=== PATIENT | male | born 1965 | race Hispanic/Latino ===

== ENCOUNTER 2025-05-08 05:43 | Day surgery (SDC) | payer OTHER ==
[2025-05-06 10:03] LABS: IMMATURE GRANULOCYTE ABSOLUTE 0.02 K/uL (0-1); NUCLEATED RED BLOOD CELLS 0.0 % (0.0-0.19); PLATELET COUNT (AUTO) 180 K/uL (130-400); RED BLOOD CELL COUNT(AUTO) 5.29 MIL/uL (4.50-6.20); RED CELL DISTRIBUTION WIDTH 12.9 % (11.0-15.5); WHITE BLOOD COUNT (AUTO) 6.0 K/uL (4.8-10.8)
[2025-05-06 10:17] LABS: CREATININE 0.8 mg/dL (0.5-1.3); GLOMERULAR FILTR. RATE CALC 101.0 mL/min (>90); GLUCOSE,RANDOM 311.0 mg/dL (70-105); SODIUM SERUM 136.0 mmol/L (136-145); UREA NITROGEN, BLOOD 17.0 mg/dL (7-18)
[2025-05-06 10:18] LABS: ERYTHROCYTE SEDIMENTATION RATE 25 MM/HR (0-20)
[2025-05-06 10:36] VITALS: BP 161/86; PULSE 86; RESP 18; TEMP 98.4
[2025-05-06 10:37] LABS: INR 0.97 (0.85-1.15)
[~2025-05-08] VITALS: Ht 190.5 cm; Wt 132.3 kg
[2025-05-08] VITALS (17 sets, daily range): BP systolic 96–131; BP diastolic 50–80; PULSE 64–95; RESP 13–20; TEMP 96.8–97.8
[~2025-05-08 05:43] MED LIST: AMLO-258 PO; ASPI-1443 PO; ATOR20TA65 PO; CLON0.1T PO; DAPA5TAB PO; EMPA25TA PO; GLARGINE SQ; HYDR25TA PO; LOSA100T59 PO; METO200T37 PO; PIOG45TA64 PO; TERA1CAP4 PO
[2025-05-08] MEDS: 0.9%NACL 1000ML 1,000 ML IV ONE (07:59)
[2025-05-08] MEDS ORDERED: MIDAZOLAM HCL 1 MG/ML 2ML VIAL ONE (09:01)
[2025-05-08] MEDS ORDERED: MEPERIDINE-PF 25 MG/ML SYG ONE (11:41)
[2025-05-08] MEDS ORDERED: GLYCOPYRROLATE 0.2 MG/ML 5 ML VIAL ONE (11:57)
[2025-05-08] MEDS ORDERED: NEOSTIGMINE METHYLSULFATE 1MG/ML IV ONE (11:57)
[2025-05-08] MEDS ORDERED: ACET-2079 PO (12:12)
--- NOTE | 2025-05-08 23:53 | OP ---
Operative Note: DATE OF PROCEDURE: 05/08/25 SURGEON: BEV LIMON MD BINDER LOCKSTITCH: Elliot Saavedra ANESTHESIA: General ANESTHESIOLOGIST/RECREATION PROFESSOR: Hernandez Torres CRNA PREOPERATIVE DIAGNOSIS: left proximal tibia symptomatic hardware POSTOPERATIVE DIAGNOSIS: left proximal tibia symptomatic hardware PROCEDURE: left proximal tibia hardware removal ESTIMATED BLOOD LOSS: 10 cc INDICATIONS: 60 year old male who underwent ORIF left tibial plateau fracture many years ago who now presents complaining of left knee pain with painful crepitation. After discussion of the risks, benefits, and alternatives, he voluntarily agreed to undergo the aforementioned procedure. DESCRIPTION OF PROCEDURE: Patient was properly identified in the preoperative holding area. Surgical site marking was verified and surgery consent reviewed. The patient was then taken to the operating room and placed in supine position on the OR table. After induction of general anesthesia, preoperative antibiotics were given, all bony prominences were well-padded, and a well padded tourniquet was applied but not inflated at this time. The left lower extremity was then prepped and draped in usual sterile fashion. Surgical timeout was done verifying correct surgery, side, site, and location to be performed. We exsanguinated the limb and inflated to tourniquet to 250 mmHg. We then began the procedure by reopening an approximately 14 cm long incision over the medial aspect. We encountered a venous tourniquet and deflated the tourniquet at this time. We dissected through the scar tissue and subcutaneous fat. A Torres elevator was used to help elevated the soft tissue off the plate and screws. Hemostasis was performed with Bovie electrocautery. Osteotomes were used to rem ove overlying bone from the plate. Screws and plate were removed without difficulty. We elected to leave the threaded end of the broken screw. We then used fluoroscopy to help localize the lateral screw and reopened approximately 10 cm of the lateral wound. Hemostasis was performed and a Torres elevator was used to help remove soft tissue overlying the screw head and osteotomes were used to un cover the washer. These were then removed without difficulty. The wounds were then thoroughly irrigated out with normal saline. #1 Vicryl was used to close the deeper layers. 2-0 Vicryl in the subcutaneous with a running subcuticular 3-0 Monocryl for the skin. A sterile soft dressing was applied. The patient was then awakened from anesthesia and taken the recovery room in stable condition. BEV LIMON MD May 08, 2025 23:53
--- NOTE | 2025-05-13 23:45 | HMCIMG ---
Fluoroscopy is utilized for the procedure. The total fluoroscopy time is 00:18.0 (mm:ss.d). The total dose area product is 0.4619 (Gycm2). The interpreting radiologist was not present during the procedure. /[place]
== END 2025-05-08 14:00 | disposition home or self-care (01) ==
LOC: DAH 05:43
PROVIDERS: ATTEND Student in an Organized Health Care Education/Training Program
DX: T84.84XA Pain due to internal orthopedic prosthetic devices, implants and grafts, initial encounter (principal); M17.32 Unilateral post-traumatic osteoarthritis, left knee; X58.XXXA Exposure to other specified factors, initial encounter; Y83.8 Other surgical procedures as the cause of abnormal reaction of the patient, or of later complication, without mention of misadventure at the time of the procedure; Y92.89 Other specified places as the place of occurrence of the external cause; I10 Essential (primary) hypertension; E11.9 Type 2 diabetes mellitus without complications; E78.5 Hyperlipidemia, unspecified; M19.90 Unspecified osteoarthritis, unspecified site; Z79.82 Long term (current) use of aspirin; Z83.3 Family history of diabetes mellitus; Z82.49 Family history of ischemic heart disease and other diseases of the circulatory system; Z79.899 Other long term (current) drug therapy
CPT/HCPCS: 82040; 80048; 85025; 85610; 85730; 85651; 84134; 86140; 36415; 64447; 20680; 82948 ×2; 73564; A4223 ×2; A4663; A4649 ×2; J0690 ×3; J3010 ×2; J7030; J0665 ×3; J3490 ×2; J2250; J2704; J2405; J2710; J2175; J2795; J2371; A4930 ×2; A6254; A5120; A4215; A4213; A4222; A4221; A4216; 76000